=== PATIENT | female | born 1990 | race Caucasian/White ===

== ENCOUNTER → 2017-01-03 | Day surgery (SDC) | payer OTHER ==
[~2017-01-03] VITALS: Ht 162.6 cm; Wt 59.2 kg
[~2017-01-03] MED LIST: ACETAMINOPHEN325 MG PO; CLARITIN10 MG PO; FEOSOL325 MG PO; MOTRIN800 MG PO; NORETHINDRONE0.35 MG PO; PAZEO2.5 ML OPHTH; PERCOCET 5-3251 EACH PO; PRENATAL 1+1)(P1 TAB PO; PROBIOTIC1 EAC4 PO; TUMS200 MG PO
--- NOTE | ~2017-01-03 | OR ---
PATIENT'S NAME: MAL ALMODOVAR [facility] AGE: 26 Y [address] ROOM: [place] [address] [place] [facility] [place] DATE: 01/03/2017 OR/Procedure Report DISCHARGE DATE: FAMILY PHYSICIAN: Justina Jay PA-C ATTENDING PHYSICIAN: Nichole Godwin SURGEON: Nichole Godwin MD STONE CHIMNEY MASON: DATE OF PROCEDURE: 01/03/2017 PREOPERATIVE DIAGNOSIS: Left ovarian cyst, 6 x 4 cm. POSTOPERATIVE DIAGNOSIS: Left ovarian cyst, 6 x 4 cm. PROCEDURE PERFORMED: Laparoscopic left salpingo-oophorectomy. STONE CHIMNEY [facility]ON SURGEON: machine technician. ESTIMATED BLOOD LOSS: 25 mL. ANESTHESIA: GETA. FINDINGS: A 4 x 6 cm left ovarian cyst, solid in nature. INDICATIONS: The patient is a 26-year-old female who presented to my office with an abnormal imaging study. She had presented with abdominal pain, and they had noted to be a "fluid collection" in her posterior cul-de-sac on transvaginal ultrasound, and it appeared that she had a left ovarian cyst which, I thought, appeared to be hemorrhagic in nature versus an endometrioma. Because of the size of the cyst, the decision was made for removal via laparoscopy. The plan was for removal of the tube and ovary, but if possible to drain the cyst and then just remove the cyst wall. Prior to the procedure, the risks, benefits, and alternatives to the procedure were discussed with the patient. She understood the risks to be, but not to be limited to bleeding, infection, damage to the bowel, bladder, ureter, and surrounding organs and desired to proceed. DESCRIPTION OF PROCEDURE: The patient was taken to the operating room where anesthesia was found to be adequate. She was prepped and draped in a dorsal lithotomy position, and a time-out was performed. A uterine manipulator was placed. The surgeon's gloves were changed. A Veress needle was placed at a 45-degree angle while tenting the abdominal wall. Anterior peritoneal placement was confirmed with a drop in pressure with insufflation of CO2 gas. The abdomen was insufflated, and the Veress needle was removed. A 10 mm trocar was then introduced infraumbilically after a skin incision was made. The abdomen was surveyed, and the above findings were noted. There were PATIENT'S NAME: MAL ALMODOVAR [facility] AGE: 26 Y [address] ROOM: [place] [address] [place] [facility] [place] DATE: 01/03/2017 OR/Procedure Report DISCHARGE DATE: FAMILY PHYSICIAN: Justina Jay PA-C ATTENDING PHYSICIAN: Nichole Godwin normal tubes and ovaries on the right side. The left tube appeared normal. The left ovary was as above. The uterus appeared normal, and the rest of the abdomen appeared normal. There were 2 additional port sites placed; an 11 mm port in the left, and a 5 mm port on the right. The cyst was held steady with a blunt grasper, and I attempted to drain it with a large bore laparoscopy needle. It, however, was noted to not have any fluid at all and would not drain. Therefore, because it was all solid in nature, the decision was made for removal. The LigaSure device was used, and I came across the infundibulopelvic ligament followed by the mesosalpinx and across the uteroovarian ligament, removing the full tube and ovary in one piece. The tube and ovary were then placed in an EndoCatch bag, and the EndoCatch bag was brought out through the 11 mm incision. This was very difficult to bring out through the incision because it was so solid. I attempted to break up the mass through the bag without breaking the bag, but I was unable to get the mass small enough to remove because it was again so solid. Therefore, I had to extend that skin incision and then pull the bag through. When the bag pulled through, the bottom portion of the bag did break. However, I was able to retrieve the piece of the bag that did break, ensure that it did fit in the missing piece of the EndoCatch bag, and surveyed the abdomen for any remaining plastic and there was none. Hemostasis was noted and the trocars were removed under direct visualization. On the left side, the fascia was repaired with 0 Vicryl, and the skin was closed with 4-0 Vicryl. The skin was closed with 4-0 Vicryl at the other sites. Steri-Strips were placed, and Marcaine was injected at the port sites for additional anesthesia. COMPLICATIONS: None. CONDITION: The patient is stable. MD STEFFANIE ANDRES/katial /[id number] d: 01/03/17 1811 t: 01/10/17 1134, OPERATIVE SUMMARY
[2017-01-03 10:37] LABS: BASOPHIL # 0.1 K/uL (0.0-0.2); BASOPHIL % 1.2 %; EOSINOPHIL # 0.2 K/uL (0.0-0.5); EOSINOPHIL % 3.5 %; HEMATOCRIT 43.1 % (33.0-46.0); IMMATURE GRANULOCYTE % 0.5 %; LYMPHOCYTE # 1.7 K/uL (0.8-4.0); LYMPHOCYTE % 38.2 %; MCH 26.8 pg (27.0-34.0); MCHC 32.5 gm/dL (32.0-36.5); MCV 82.6 fl (83.0-98.0); MONOCYTE # 0.4 K/uL (0.0-1.0); MONOCYTE % 8.8 %; MPV 10.2 fl (9.4-12.4); NEUTROPHIL # (ANC) 2.1 K/uL (1.8-7.8); NEUTROPHIL % 47.8 %; NRBC % 0 /100WBC (0-0.00); PLATELET COUNT 231 K/uL (150-450); RDW-CV 13.1 % (11.9-14.6); WBC 4.3 K/uL (4.0-11.0)
[2017-01-03 10:38] LABS: RBC 5.22 M/uL (3.50-5.00)
== END | disposition disaster alternative care site (69) ==
LOC: GPOC 12-28 09:00 → GSDC 09:00
PROVIDERS: Obstetrics & Gynecology
PROC: 0UB14ZZ Excision of Left Ovary, Percutaneous Endoscopic Approach (ICD-10-PCS; principal; 2017-01-03)
PROC: 0UB64ZZ Excision of Left Fallopian Tube, Percutaneous Endoscopic Approach (ICD-10-PCS; 2017-01-03)
DX: D39.12 Neoplasm of uncertain behavior of left ovary (principal); Z88.2 Allergy status to sulfonamides; Z88.1 Allergy status to other antibiotic agents
CPT/HCPCS: J1100; J1200; J2250; J2405; J3010; J7120